=== PATIENT | female | born 2005 | race Hispanic/Latino ===

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

== ENCOUNTER 2024-06-16 04:55 | Emergency (ER) | payer SELFPAY ==
[2024-06-16] MEDS ORDERED: ONDANSETRON 4 MG/2 ML VIAL ONE (05:25)
[2024-06-16] MEDS ORDERED: NA CHLORIDE 0.9% 1,000 ML ONE (05:25)
[2024-06-16] MEDS ORDERED: PROMETHAZINE INJ 25 MG/ML AMP ONE (05:25)
[2024-06-16 05:47] LABS: Absolute Lymphocytes (CBC) 0.5 K/uL (0.7-4.9); Absolute Monocytes 0.4 K/uL (0.1-1.3); Absolute Neutrophil 13.3 K/uL (1.8-8.0); Basophils % 0.2 % (0-1.3); Eosinophils % 0.3 % (0-4.4); Hematocrit 41.9 % (36.0-45.0); Hemoglobin 14.3 g/dL (12.0-15.0); Lymphocytes % 3.2 % (15.3-44.8); MCH 31.8 pg (27.0-35.0); MCHC 34.2 g/dL (32.0-36.0); MCV 92.9 fL (80-100); MPV 9.3 fL (7.6-11.3); Monocytes % 2.9 % (3.3-12.3); Neutrophils % 93.4 % (41.7-73.7); Platelets 188 thou/uL (152-406); RBC Red Blood Cell Count 4.51 M/uL (3.86-4.86); Red Cell Distribution Width 12.3 % (12.1-15.2)
[2024-06-16 05:49] LABS: Specific Gravity > 1.030 (1.005-1.030)
[2024-06-16 05:53] LABS: Specific Gravity > 1.030 (1.005-1.030); Urine Bacteria <20 /HPF (<20); Urine Bilirubin NEGATIVE (Negative); Urine Blood Negative (Negative); Urine Clarity Extremely Turbid (Clear); Urine Color Yellow (Yellow); Urine Crystals Unidentified Few /HPF (None Seen); Urine Culture Reflex Order NOT NEEDED; Urine Glucose NEGATIVE (Negative); Urine Ketones NEGATIVE (Negative); Urine Microscopic Reflex YN ORDER UMIC; Urine Mucus 4+ /HPF (None Seen); Urine Nitrite NEGATIVE (Negative); Urine Protein TRACE (Negative); Urine RBC <5 /HPF (None Seen); Urine Urobilinogen Normal (Normal); Urine WBC <5 /HPF (<5); Urine pH 5.5 (5.0-7.0)
[2024-06-16 06:06] LABS: Albumin 4.2 g/dL (3.4-5.0); Albumin/Globulin Ratio 1.2 (1.1-1.8); Anion Gap 7.7 mEq/L (5.0-15.0); Bilirubin Total 1.5 mg/dL (0.2-1.0); Globulin 3.5 g/dL (2.3-3.5); Potassium 3.7 mEq/L (3.5-5.1); Protein, Total 7.7 g/dL (6.4-8.2)
[2024-06-16 06:44] LABS: Platelet Estimate ADEQ; White Blood Cell Scan OK (OK)
[2024-06-16 06:45] LABS: Blood Morphology Comment NOT SEEN (NOT SEEN)
--- NOTE | 2024-06-16 07:16 | EDPHYS ---
Physician Documentation [facility] Name: Nichole Klein Age: 18 yrs Sex: Female : 2005 Arrival Date: 06/16/2024 Time: 04:55 Bed 8 Private MD: ED Physician Melvin Adamson HPI: 06/16 05:19 This 18 yrs old Female presents to ER via Ambulatory with complaints of trey Nausea/Vomiting, Abdominal Pain. 05:19 The patient presents to the emergency department with nausea, vomiting, abdominal pain, trey of the right upper quadrant, left upper quadrant, right lower quadrant and left lower quadrant. Onset: The symptoms/episode began/occurred 2 day(s) ago. Possible causes: unknown. The symptoms are aggravated by nothing. The symptoms are alleviated by nothing. Associated signs and symptoms: The patient has no apparent associated signs or symptoms. The patient has not experienced similar symptoms in the past. 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 - Infectious Disease History:: Denies. - Social history:: Smoking status: Patient denies any tobacco usage or history of. Patient/guardian denies using alcohol, street drugs. - Family history:: not pertinent. ROS: 05:19 Constitutional: Negative for fever, chills, and weight loss, Eyes: Negative for injury, trey pain, redness, and discharge, ENT: Negative for injury, pain, and discharge, Neck: Negative for injury, pain, and swelling, Respiratory: Negative for shortness of breath, cough, wheezing, and pleuritic chest pain, Back: Negative for injury and pain, : Negative for injury, bleeding, discharge, and swelling, MS/Extremity: Negative for injury and deformity, Skin: Negative for injury, rash, and discoloration, Neuro: Negative for headache, weakness, numbness, tingling, and seizure, Psych: Negative for depression, anxiety, suicide ideation, homicidal ideation, and hallucinations, Allergy/Immunology: Negative for hives, rash, and allergies, Endocrine: Negative for neck swelling, polydipsia, polyuria, polyphagia, and marked weight changes, Hematologic/Lymphatic: Negative for swollen nodes, abnormal bleeding, and unusual bruising, 05:19 Cardiovascular: Positive for palpitations, 05:19 Abdomen/GI: Positive for nausea and vomiting, Exam: 05:19 Constitutional: This is a well developed, well nourished patient who is awake, alert, trey and in no acute distress. Head/Face: Normocephalic, atraumatic. Eyes: Pupils equal round and reactive to light, extra-ocular motions intact. Lids and lashes normal. Conjunctiva and sclera are non-icteric and not injected. Cornea within normal limits. Periorbital areas with no swelling, redness, or edema. ENT: Nares patent. No nasal discharge, no septal abnormalities noted. Tympanic membranes are normal and external auditory canals are clear. Oropharynx with no redness, swelling, or masses, exudates, or evidence of obstruction, uvula midline. Mucous membranes moist. Neck: Trachea midline, no thyromegaly or masses palpated, and no cervical lymphadenopathy. Supple, full range of motion without nuchal rigidity, or vertebral point tenderness. No Meningismus. Chest/axilla: Normal chest wall appearance and motion. Nontender with no deformity. No lesions are appreciated. Respiratory: Lungs have equal breath sounds bilaterally, clear to auscultation and percussion. No rales, rhonchi or wheezes noted. No increased work of breathing, no retractions or nasal flaring. Back: No spinal tenderness. No costovertebral tenderness. Full range of motion. Skin: Warm, dry with normal turgor. Normal color with no rashes, no lesions, and no evidence of cellulitis. MS/ Extremity: Pulses equal, no cyanosis. Neurovascular intact. Full, normal range of motion. Neuro: Awake and alert, GCS 15, oriented to person, place, time, and situation. Cranial nerves II-XII grossly intact. Motor strength 5/5 in all extremities. Sensory grossly intact. Cerebellar exam normal. Normal gait. Psych: Awake, alert, with orientation to person, place and time. Behavior, mood, and affect are within normal limits. 05:19 Constitutional: The patient appears non-toxic, 05:19 Cardiovascular: Rate: tachycardic, actual rate is 130 bpm, Rhythm: regular, 05:19 Abdomen/GI: Inspection: abdomen appears normal, Bowel sounds: normal, Palpation: abdomen is soft and non-tender, Liver: no appreciated palpable abnormalities, Hernia: not appreciated, Vital Signs: 05:10 BP 123 / 79; Pulse 130; Resp 18 S; Temp 97.3(TE); Pulse Ox 98% on R/A; Weight 54.43 kg lg3 (R); Height 5 ft. 2 in. ; Pain 5/10; 05:35 BP 112 / 80; Pulse 108; Resp 18; Temp 97.3; Pulse Ox 99% ; bm8 06:42 BP 102 / 65; Pulse 102; Resp 18; Temp 97.3; Pulse Ox 99% ; Pain 0/10; bm8 07:21 BP 91 / 60; Pulse 95; Resp 18; Pulse Ox 97% on R/A; ap3 05:10 Body Mass Index 21.95 (54.43 kg, 157.48 cm) - Percentile 53.1 % lg3 05:10 Pain Scale: Adult lg3 06:42 Pain Scale: Adult bm8 Slade Coma Score: 05:35 Eye Response: spontaneous(4). Motor Response: obeys commands(6). Verbal Response: bm8 oriented(5). Total: 15. 06:42 Eye Response: spontaneous(4). Motor Response: obeys commands(6). Verbal Response: bm8 oriented(5). Total: 15. MDM: 05:03 Patient medically screened. trey 05:22 Differential diagnosis: Nonspecific abd pain, gastritis, cholecystitis, pancreatitis, trey appendicitis, diverticulitis, viral gastroenteritis, gastroenteritis. Data reviewed: vital signs, nurses notes, lab test result(s), CBC, electrolytes, hepatic panel, urinalysis. Consideration of Admission/Observation Escalation of care including admission/observation considered. I considered the following discharge prescriptions or medication management in the emergency department Medications were administered in the Emergency Department. See MAR. Test considered but Not performed: Ultrasound no abd usg. Historians other than the Patient: pt well informed. Care significantly affected by the following chronic conditions: none. Counseling: I had a detailed discussion with the patient and/or guardian regarding the historical points, exam findings, and any diagnostic results supporting the discharge/admit diagnosis, lab results, radiology results, the need for outpatient follow up, for definitive care, a family practitioner. 06/16 05:09 Order name: CBC with Diff; Complete Time: 07:02 trey 06/16 05:09 Order name: Comprehensive Metabolic Panel; Complete Time: 06:06 trey 06/16 05:09 Order name: Urinalysis w/ reflexes; Complete Time: 06:06 trey 06/16 05:09 Order name: PREGU; Complete Time: 06:06 trey 06/16 05:50 Order name: CBC Smear Scan; Complete Time: 07:02 EDOK 06/16 06:12 Order name: CT Abd/Pelvis - IV Contrast Only trey Administered Medications: 05:34 Drug: Ondansetron IVP 4 mg IVP once; over 2 minutes Route: IVP; Site: left antecubital; bm8 05:57 Follow up: Response: No adverse reaction bm8 05:34 Drug: Promethazine IVP 25 mg IVP once; to liter bag Route: IVP; Site: left antecubital; bm8 05:57 Follow up: Response: No adverse reaction bm8 05:35 Drug: NS 0.9% IV 1000 ml IV at 1 bolus Per protocol; to be given as a bolus over 60 bm8 minutes Route: IV; Rate: 1 bolus; Site: left antecubital; 06:43 Follow up: IV Status: Completed infusion; IV Intake: 1000ml bm8 07:51 Drug: Ciprofloxacin PO 500 mg PO once Route: PO; ap3 Disposition Summary: 06/16/24 07:15 Discharge Ordered Notes: Location: Home trey Problem: new trey Symptoms: have improved trey Condition: Stable trey Diagnosis - Nausea with vomiting, unspecified trey - Nausea trey - Abdominal pain, Generalized trey - Dehydration trey - Elevated white blood cell count trey - Other viral enteritis trey Followup: trey - With: Private Physician - When: 2 - 3 days - Reason: Recheck today's complaints, Continuance of care, Re-evaluation by your physician Discharge Instructions: - Discharge Summary Sheet trey - Abdominal Pain, Adult trey - Dehydration, Adult trey - Nausea and Vomiting, Adult trey - Nausea, Adult trey - Viral Gastroenteritis, Adult, [id number] trey - Nausea and Vomiting, Adult, [id number] trey - Abdominal Pain, Adult, [id number] trey Forms: - Medication Reconciliation Form trey - Antibiotic Education trey - Prescription Opioid Use trey - Patient Portal Instructions trey - Leadership Thank You Letter trey - School release form mb9 - Work release form mb9 Prescriptions: - ondansetron 4 mg Oral Tablet,disintegrating - take 1 tablet ORAL route every 6-8 hours for 5 days as needed for nausea and trey vomiting; 20 tablet; Refills: 0, Product Selection Permitted - Cipro 250 mg Oral tablet - take 1 tablet ORAL route every 12 hours; 10 tablet; Refills: 0, Product trey Selection Permitted - promethazine 25 mg Oral tablet - take 1 tablet ORAL route every 6 hours As needed prn intractable nausea and trey vomiting; 15 tablet; Refills: 0, Product Selection Permitted - dicyclomine 20 mg Oral tablet - take 1 tablet ORAL route 4 times per day; 28 tablet; Refills: 0, Product [facility] Selection Permitted Signatures: Dispatcher [employer] EDMS Melvin Adamson MD MD cha Prokisch, Amanda, RN RN ap3 Jory Shoemaker, RN RN lg3 Rodolfo Hurt RN RN bm8 Corrections: (The following items were deleted from the chart) 05:10 05:09 CBC+H.LAB.BRZ ordered. EDMS EDMS 05:10 05:09 COMPREHENSIVE METABOLIC PANEL+C.LAB.BRZ ordered. EDMS EDMS 05:10 05:09 Urinalysis+U.LAB.BRZ ordered. EDMS EDMS 05:10 05:09 Test, Urine+UC.LAB.BRZ ordered. EDMS EDMS
--- NOTE | 2024-06-16 07:16 | ER ---
Nurse's Notes [facility] Name: Nichole Klein Age: 18 yrs Sex: Female : 2005 Arrival Date: 06/16/2024 Time: 04:55 Bed 8 Private MD: Diagnosis: Nausea with vomiting, unspecified;Nausea;Abdominal pain, Generalized;Dehydration;Elevated white blood cell count;Other viral enteritis Presentation: 06/16 05:10 Chief complaint: Patient states: vomiting with abdominal pain beginning 2300 yesterday. lg3 Coronavirus screen: Client denies travel out of the [place] in the last 14 days. At this time, the client does not indicate any symptoms associated with coronavirus-19. Ebola Screen: No symptoms or risks identified at this time. Initial Sepsis Screen: Does the patient meet any 2 criteria? No. Patient's initial sepsis screen is negative. Does the patient have a suspected source of infection? No. Patient's initial sepsis screen is negative. Risk Assessment: Do you want to hurt yourself or someone else? Patient reports no desire to harm self or others. Onset of symptoms was June 15, 2024. 05:10 Method Of Arrival: Ambulatory lg3 05:10 Acuity: DAVINA 3 lg3 Triage Assessment: 05:11 General: Appears in no apparent distress. comfortable, Behavior is calm, cooperative. lg3 Pain: Complains of pain in abdomen. EENT: No deficits noted. No signs and/or symptoms were reported regarding the EENT system. Neuro: No deficits noted. Tilley Agitation-Sedation Scale (RASS): 0 - Alert and Calm Level of Consciousness is awake, alert, obeys commands, Oriented to person, place, time, situation. Cardiovascular: No deficits noted. Denies chest pain, shortness of breath, Capillary refill < 3 seconds Clubbing of nail beds is absent JVD is absent Patient's skin is warm and dry. Respiratory: No deficits noted. Airway is patent Respiratory effort is even, unlabored, Respiratory pattern is regular, symmetrical. GI: Abdomen is flat, non-distended, Abd is soft X 4 quads Reports lower abdominal pain, upper abdominal pain, nausea, vomiting. : No deficits noted. No signs and/or symptoms were reported regarding the genitourinary system. Derm: No deficits noted. No signs and/or symptoms reported regarding the dermatologic system. Skin is intact, is healthy with good turgor, Skin is dry, Skin is normal, Skin temperature is warm. Musculoskeletal: No deficits noted. No signs and/or symptoms reported regarding the musculoskeletal system. Circulation, motion, and sensation intact. Range of motion: intact in all extremities. 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 - Infectious Disease History:: Denies. - Social history:: Smoking status: Patient denies any tobacco usage or history of. Patient/guardian denies using alcohol, street drugs. - Family history:: not pertinent. Screenin:18 [facility] ED Fall Risk Assessment (Adult) History of falling in the last 3 months, lg3 including since admission No falls in past 3 months (0 pts) Confusion or Disorientation No (0 pts) Intoxicated or Sedated No (0 pts) Impaired Gait No (0 pts) Mobility Assist Device Used No (0 pt) Altered Elimination No (0 pt) Score/Fall Risk Level 0 - 2 = Low Risk Oriented to surroundings, Maintained a safe environment, Educated pt \T\ family on fall prevention, incl call for assistance when getting out of bed, Assessed \T\ reinforced patient's understanding of fall precautions. Abuse screen: Denies threats or abuse. Denies injuries from another. Nutritional screening: No deficits noted. Tuberculosis screening: No symptoms or risk factors identified. Assessment: 05:18 General: see triage assessment. GI: Abdomen is flat, non-distended, Reports lower lg3 abdominal pain, upper abdominal pain, nausea, vomiting. 06:42 Reassessment: Patient appears in no apparent distress at this time. Patient and/or bm8 family updated on plan of care and expected duration. Pain level reassessed. Patient is alert, oriented x 3, equal unlabored respirations, skin warm/dry/pink. Patient denies pain at this time. Patient states feeling better. Patient states symptoms have improved. GI: No deficits noted. No signs and/or symptoms were reported involving the gastrointestinal system. 07:20 Reassessment: Patient and/or family updated on plan of care and expected duration. Pain ap3 level reassessed. Patient is alert, oriented x 3, equal unlabored respirations, skin warm/dry/pink. General: Appears in no apparent distress. comfortable, Behavior is calm, cooperative, appropriate for age. Neuro: Level of Consciousness is awake, alert, obeys commands, Oriented to person, place, time, situation. Cardiovascular: Patient's skin is warm and dry. Respiratory: Airway is patent Respiratory effort is even, unlabored, Respiratory pattern is regular, symmetrical. Vital Signs: 05:10 BP 123 / 79; Pulse 130; Resp 18 S; Temp 97.3(TE); Pulse Ox 98% on R/A; Weight 54.43 kg lg3 (R); Height 5 ft. 2 in. ; Pain 5/10; 05:35 BP 112 / 80; Pulse 108; Resp 18; Temp 97.3; Pulse Ox 99% ; bm8 06:42 BP 102 / 65; Pulse 102; Resp 18; Temp 97.3; Pulse Ox 99% ; Pain 0/10; bm8 07:21 BP 91 / 60; Pulse 95; Resp 18; Pulse Ox 97% on R/A; ap3 05:10 Body Mass Index 21.95 (54.43 kg, 157.48 cm) - Percentile 53.1 % lg3 05:10 Pain Scale: Adult lg3 06:42 Pain Scale: Adult bm8 Slade Coma Score: 05:35 Eye Response: spontaneous(4). Motor Response: obeys commands(6). Verbal Response: bm8 oriented(5). Total: 15. 06:42 Eye Response: spontaneous(4). Motor Response: obeys commands(6). Verbal Response: bm8 oriented(5). Total: 15. ED Course: 05:02 Patient arrived in ED. [email or web address] 05:03 Melvin Adamson MD is Attending Physician. trey 05:11 Triage completed. lg3 05:11 Arm band placed on right wrist. lg3 05:18 Patient has correct armband on for positive identification. Placed in gown. Bed in low lg3 position. Call light in reach. Side rails up X 1. Client placed on continuous cardiac and pulse oximetry monitoring. NIBP monitoring applied. Door closed. Noise minimized. Warm blanket given. Pillow given. 05:34 Rodolfo Hurt, RN is Primary Nurse. bm8 05:35 No provider procedures requiring assistance completed. Initial lab(s) drawn, by ED bm8 staff, sent to lab. Inserted saline lock: 20 gauge in left antecubital area, using aseptic technique. Blood collected. Flushed with 10 mL NS. Patient maintains SpO2 saturation greater than 95% on room air. 06:28 CT Abd/Pelvis - IV Contrast Only In Process Unspecified. EDMS 07:05 Report given to Sejal Valencia RN and CHEKO Carmen. bm8 07:50 Provided Education on: discharge instructions. ap3 07:50 IV discontinued, intact, bleeding controlled, No redness/swelling at site. Pressure ap3 dressing applied. Administered Medications: 05:34 Drug: Ondansetron IVP 4 mg IVP once; over 2 minutes Route: IVP; Site: left antecubital; bm8 05:57 Follow up: Response: No adverse reaction bm8 05:34 Drug: Promethazine IVP 25 mg IVP once; to liter bag Route: IVP; Site: left antecubital; bm8 05:57 Follow up: Response: No adverse reaction bm8 05:35 Drug: NS 0.9% IV 1000 ml IV at 1 bolus Per protocol; to be given as a bolus over 60 bm8 minutes Route: IV; Rate: 1 bolus; Site: left antecubital; 06:43 Follow up: IV Status: Completed infusion; IV Intake: 1000ml bm8 07:51 Drug: Ciprofloxacin PO 500 mg PO once Route: PO; ap3 Medication: 05:18 VIS not applicable for this client. lg3 Intake: 06:43 IV: 1000ml; Total: 1000ml. bm8 Outcome: 07:15 Discharge ordered by . trey 07:44 Condition: good ap3 07:44 Discharge instructions given to patient, Instructed on discharge instructions, follow up and referral plans. medication usage, Demonstrated understanding of instructions, follow-up care, medications, Prescriptions given X 4, 07:50 Discharged to home ambulatory, ap3 08:12 Patient left the ED. ap3 Signatures: Dispatcher [employer] [facility] Melvin Adamson MD MD cha Prokisch, Amanda, RN RN ap3 Jory Shoemaker RN RN lg3 Adeline Rosen Rodolfo Hurt, RN RN bm8
[2024-06-16] MEDS ORDERED: CIPROFLOXACIN HCL 500 MG TAB ONE (07:33)
--- NOTE | 2024-06-16 07:36 | RAD REPORT ---
EXAMINATION: CT ABDOMEN AND PELVIS WITH CONTRAST CLINICAL INDICATION: Abdominal pain TECHNIQUE: CT abdomen and pelvis was performed, after the administration of 100 cc Isovue-300.. Sagit luke and coronal reconstructions were obtained. One or more of the following dose reduction techniques were used: Automated exposure control, adjustment of the mA and/or kV according to patien t size, and/or iterative reconstruction. Unless otherwise specified, incidental findings do not require dedicated imaging follow-up. [id number]. Oral contrast was not given which limits evaluation of b owel and appendix. COMPARISON: 2018 FINDINGS: The liver, spleen, pancreas, adrenals and kidneys appear unremarkable There is no evidence of diverticulitis 2 cm right ovarian cyst without significant free fluid. No follow-up imaging recommended. Abnormal appendix not seen Fluid within nondilated small bowel : IMPRESSION: Fluid within nondilated small bowel may indicate an enteritis 2 cm right ovarian cyst without significant free fluid
[2024-06-16 08:39] VITALS: TEMP 97.3
[2024-06-16 08:44] VITALS: BP 91/60; O2SAT 97
== END 2024-06-16 08:12 | disposition home or self-care (01) ==
LOC: ER 04:55
DX: E86.0 Dehydration (principal); R10.84 Generalized abdominal pain; A08.39 Other viral enteritis; D72.829 Elevated white blood cell count, unspecified; R11.0 Nausea
CPT/HCPCS: 36415; 74177; 80053; 81001; 81025; 85025; J2405; J2550; J7030; Q9967

== ENCOUNTER 2024-08-07 14:38 | Emergency (ER) | payer SELFPAY, OTHER ==
--- OUTSIDE RECORDS SUMMARY | 2024-08-07 14:41 | XMS REPORT | Continuity of Care Document ---
Author Name Unknown Address [address] [facility] [address] [place] [address] [facility] thconnect Address [address] [facility] [address] [place] [address] Care Team Providers Care Chalk Machine Operator Name Role Phone Sabrina Dennis Primary Care Physician + [phone] ASPEN LOVE Attending Clinician Unavailable Testing, [facility] Pulmonary Function Attending Clinic ashlee Unavailable Reshma Serrano MD Attending Clin ician RESHMA SERRANO Attending Clinici an Unavailable Khalida Damian Attending Clinician [phone] TAD LOPEZ Attending Clinician Unavailab chris Ang-Ped_Temp Attending Clinician Unavailable Tad Henriquez Attending Clinician + [phone] Sabrina Rodriguez Attending Clinician + [phone] Doctor Unassigned, [place] Attending Clinician Janna Guzmán Attending Clinician [phone] NEIL BALL Attending Clinician Unavailab [place] Attending Clinician Unavail able ALESSIO BOURGEOIS Attending Clinician Unavail able Nurse, Adc Pob Immunization Attending Clinician Unavailable Alessio Bourgeois DO Attending Clinician [phone] Neil Ball MD Attending Clinician [phone] SABRINA MENDENHALL Attending Clinician Unavailabl e [facility], [facility]ending [facility]ician Shiloh JURADO, Sabrina Hardy Attending Clinician [phone] Darwin Ellsworth PA-C Attending Clinician [phone] Provider, [facility] Attending Clinician Un available Telly Ag PTA Attending Clinician UnavailAnjum Haskins MD Attending Clinician [phone] Ancelmo KIRKPATRICK, Marichuy Love Attending Clinician Unavail able JOSEPH ELLIOTT Attending Clinician Unavailable Theresa Zuniga PT Attending Clinician Unavailab ANJUM Dela Cruz Attending Clinician Unavailabl e Lab, Kathe Attending Clinician Unavailable Aryan Adhikari Attending Clinician [phone] ARYAN HESS Attending Clinician Unavaila BRIANNE Harrington Attending Clinician Unavailable Ebrahim PHARMACEUTICAL BOTANIST, Ruddy Attending Clinician [phone] Lab, Adc Fam Pob I Attending Clinician Unavailab chris JURADO, Brianne Attending Clinician [phone] Payers Payer Name Policy Type Policy Number Effective Date Expirati on Date Source [employer] MP [facility] [employer] 5 O [employer] 94 ON 9 [id number] 2024 00:00:00 Problems Condition Name Condition Details Condition Category Status Onset Date Resolution Date Last Treatment Date Treating Clinician Comments Source Kyphosis Kyphosis Disease Active 09-10 00:00: 00 [facility] Acne, unspecifie d acne type Acne, unspecifie d acne type Disease Active 04-02 00:00: 00 [facility] Mild persistent asthma without complicati on Mild persistent asthma without complicati on Disease Active 04-02 00:00: 00 [facility] Allergies, Adverse Reactions, Alerts Allergy Name Allergy Type Status Severity Reaction(s) Onset Date Inactive Date Treating Clinician Comments Source NO KNOWN ALLERGIE S Drug Class Active [facility] Social History Social Habit Start Date Stop Date Quantity Comments Source ASSERTION Not Azucena Finch - External Sexual orientation Ivan Finch - External History of Social function 2024-08-06 00:00:00 2024-08-06 00:00:00 Azucena Finch - External Sex 2024-04-17 21:46:45 2024-04-17 21:46:45 Female (finding) Azucena Mcclendongalileawillem - External Exposure to SARS-CoV-2 (event) 2022-07-05 00:00:00 2022-07-15 09:07:00 Not sure [facility] Tobacco use and exposure 2020-04-02 00:00:00 2020-04-02 00:00:00 Smokeless tobacco non-user [facility] Sex assigned at 2004 00:00:00 2005 00:00:00 Azucena Mcclendongalileawillem - External Smoking Status Start Date Stop Date Source Never smoked tobacco Azucena Segalileawillem - External Medications Ordered Medication Name Filled Medication Name Start Date Stop Date Current Medication? Ordering Clinician Indication Dosage Frequency Signature (SIG) Comments Components Source Famotidine (PEPCID) 20 MG oral tablet 2023-09 00:00: 00 Yes [id number] 20mg Q.5D Take 1 tablet (20 mg total) by mouth 2 times daily as needed for heartburn. Azucena Finch - Externa l albuterol (PROAIR HFA) 90 mcg/actuati on inhaler 09-10 00:00: 00 Yes [id number] 2{puff} Inhale 2 Puffs every 6 (six) hours as needed for Wheezing or Shortness of Breath. [facility] Vital Signs Vital Name Observation Time Observation Value Comments S ource Diastolic blood pressure 2024-08-06 20:09:00 70 mm[Hg] Azucena Ferris ld - External Heart rate 2024-08-06 20:09:00 69 /min Madan Finch - External Body temperature 2024-08-06 20:09:00 35.39 Angeli Azucena Finch - External Respiratory rate 2024-08-06 20:09:00 16 /min Azucena Finch - External Body height 2024-08-06 20:09:00 154.9 cm Zuleyka Finch - External Body weight 2024-08-06 20:09:00 55.792 kg Zuleyka ey Seybold - External BMI 2024-08-06 20:09:00 23.24 kg/m2 Zuleyka richardson Seybold - External Oxygen saturation in Arterial blood by Pulse oximetry 2024-08-06 20:09:00 98 /min Azucena Ferris ld - External Systolic blood pressure 2024-08-06 20:09:00 117 mm[Hg] Azucena Ferris ld - External Systolic blood pressure 2022-06-27 13:23:00 115 mm[Hg] [facility] Diastolic blood pressure 2022-06-27 13:23:00 76 mm[Hg] [facility] Heart rate 2022-06-27 13:23:00 95 /min [facility] Body temperature 2022-06-27 13:23:00 36.61 Angeli [facility] Respiratory rate 2022-06-27 13:23:00 20 /min [facility] Body height 2022-06-27 13:23:00 155 cm [facility] Body weight 2022-06-27 13:23:00 49.4 kg [facility] BMI 2022-06-27 13:23:00 20.56 kg/m2 [facility] Body mass index (BMI) [Percentile] Per age and sex 2022-06-27 13:23:00 41.44 % [facility] Oxygen saturation in Arterial blood by Pulse oximetry 2022-06-27 13:23:00 98 /min [facility] Systolic blood pressure 2022-05-02 16:10:00 113 mm[Hg] [facility] Diastolic blood pressure 2022-05-02 16:10:00 80 mm[Hg] [facility] Heart rate 2022-05-02 16:10:00 87 /min [facility] Body temperature 2022-05-02 16:10:00 36.72 Angeli [facility] Respiratory rate 2022-05-02 16:10:00 20 /min [facility] Body height 2022-05-02 16:10:00 156.2 cm [facility] Body weight 2022-05-02 16:10:00 50.259 kg [facility] BMI 2022-05-02 16:10:00 20.60 kg/m2 [facility] Body mass index (BMI) [Percentile] Per age and sex 2022-05-02 16:10:00 42.72 % [facility] Procedures Procedure Date / Time Performed Performing Clinicia n Source PULMONARY FUNCTION TEST (RESULTS) 2022-07-15 14:15:40 WillemReshma [facility] CONSENT FOR MEDICAL TREATMENT OF A MINOR 2022-05-02 05:01:00 Doctor Unassigned, [place] [facility] Encounters Start Date/Time End Date/Time Encounter Type Admission Type Attending [facility] Care Facility Care Department Encounter ID Source 2024-08-14 14:00:00 2024-08-14 14:00:00 Outpatient ASPEN LOVE [id number] Azucena Finch 2024-08-06 14:00:00 2024-08-06 14:00:00 Outpatient ASPEN LOVE [id number] [facility] 2022-07-15 08:00:00 2022-07-15 09:00:00 Lube Attendant Visit Testing, [facility] Pulmonary Function [place] bad[place] [facility] ..840.114 350.1.13.10 4.2.7.2.686 [id number] [facility] 2022-07-15 08:00:00 2022-07-15 08:00:00 Outpatient R RESHMA SERRANO [facility] [id number] [facility] 2022-07-15 00:00:00 2022-07-15 00:00:00 Orders Only [place] bad[place] Gro[facility] 1..840.114 350.1.13.10 4.2.7.2.686 [id number] [facility] 2022-06-27 08:00:00 2022-06-27 08:30:00 Office Visit WillemReshma Grover [facility] 1..840.114 350.1.13.10 4.2.7.2.686 [id number] [facility] 2022-06-27 08:00:00 2022-06-27 08:00:00 Outpatient R RESHMA SERRANO [facility] [id number] [facility] 2022-06-27 00:00:00 2022-06-27 00:00:00 [facility] (Out[facility] [place] 1.2.840.114 350.1.13.10 4.2.7.2.686 [id number] [facility] 2022-06-27 00:00:00 2022-06-27 00:00:00 Telephone Khalida Gandhi [facility] FIRE MANAGEMENT TECHNICIAN [facility] 1..840.114 350.1.13.10 4.2.7.2.686 [id number] [facility] 2022-05-02 11:00:00 2022-05-02 12:14:38 Outpatient TAD MAC [facility] [id number] [facility] 2022-05-02 11:00:00 2022-05-02 12:14:38 Office Visit Ang-Ped_Tem Tad Horne [facility] FIRE MANAGEMENT TECHNICIAN [facility] 1..840.114 350.1.13.10 4.2.7.2.686 [id number] [facility] 2022-05-02 11:00:00 2022-05-02 11:00:00 Outpatient TAD MAC [facility] [id number] [facility] 2022-05-02 11:00:00 2022-05-02 11:00:00 Outpatient TAD MAC [facility] [id number] [facility] 2022-05-02 00:00:00 2022-05-02 00:00:00 Letter (Out) Sabrina Braxton [facility] FIRE MANAGEMENT TECHNICIAN [facility] 1.2.840.114 350.1.13.10 4.2.7.2.686 [id number] [facility] 2022-05-02 00:00:00 2022-05-02 00:00:00 Orders Only Doctor Unassigned, [place] [facility] 1.2.840.114 350.1.13.10 4.2.7.2.686 [id number] [facility] 2022-04-29 00:00:00 2022-04-29 00:00:00 Telephone Khalida Gandhi [facility] FIRE MANAGEMENT TECHNICIAN [facility] 1.2.840.114 350.1.13.10 4.2.7.2.686 [id number] [facility] 2022-04-29 00:00:00 2022-04-29 00:00:00 Telephone Oksana Khalida [facility] FIRE MANAGEMENT TECHNICIAN [facility] 1.2.840.114 350.1.13.10 4.2.7.2.686 [id number] [facility] 2022-01-26 00:00:00 2022-01-26 00:00:00 Telephone Janna Pike [facility] FIRE MANAGEMENT TECHNICIAN [facility] 1.2.840.114 350.1.13.10 4.2.7.2.686 [id number] [facility] 2021-11-26 13:15:00 2021-11-26 13:15:00 Outpatient NEIL WILLSON [facility] [id number] [facility] 2021-11-26 13:15:00 2021-11-26 13:15:00 Outpatient NEIL WILLSON [facility] [id number] [facility] 2021-10-01 09:30:00 2021-10-01 09:30:00 Outpatient R NAGA DOE [facility] [id number] [facility] 2021-10-01 09:30:00 2021-10-01 09:30:00 Outpatient R ELTONPHYLLIS MENDESOLA [facility] [id number] [facility] 2021-09-17 15:40:00 2021-09-17 15:40:00 [id number] 2021-09-17 15:40:00 2021-09-17 15:40:00 [facility] [id number] [facility] 2021-09-17 15:40:00 2021-09-17 15:40:00 Imm/Inj Visit Nurse, Nathan Gacria ImmunizatiAlessio Falcon [facility] ..114 350.1.13.10 4.2.7.2.686 [id number] [facility] 2021-09-10 09:00:00 2021-09-10 10:05:56 Outpatient R JANNA PIKE [facility] [id number] [facility] 2021-09-10 09:00:00 2021-09-10 10:05:56 Office Visit Janna Pike [facility] FIRE MANAGEMENT TECHNICIAN [facility] ..114 350.1.13.10 4.2.7.2.686 [id number] [facility] 2021-09-10 00:00:00 2021-09-10 00:00:00 Orders Only Doctor Unassigned, [place] [facility] .114 350.1.13.10 4.2.7.2.686 [id number] [facility] 2021-06-25 15:18:17 2021-06-25 23:59:00 Hospital Encounter Neil Ball [facility] PRIMARY CARE PAVILLION .2.840.114 350.1.13.10 4.2.7.2.686 [id number] [facility] 2021-06-25 14:37:59 2021-06-25 16:44:21 Office Visit Neil Ball [facility] PRIMARY CARE PAVKAMALJIT 1.2.840.114 350.1.13.10 4.2.7.2.686 [id number] [facility] 2021-06-25 14:30:00 2021-06-25 16:44:[address] [facility] [id number] [facility] 2021-06-02 00:00:00 2021-06-02 00:00:00 Letter (Out) Lizzy [facility] PRIMARY CARE IRINA 1.2.840.114 350.1.13.10 4.2.7.2.686 [id number] [facility] 2021-04-07 15:00:00 2021-04-07 15:00:00 Outpatient R SABRINA MENDENHALL [facility] [id number] [facility] 2021-03-30 15:32:30 2021-03-30 15:44:43 Nurse Visit Visit, [facility] Nurse Sabrina Mendenhall [facility] FIRE MANAGEMENT TECHNICIAN [facility] 1.2.840.114 350.1.13.10 4.2.7.2.686 [id number] [facility] 2021-03-30 15:08:39 2021-03-30 15:23:39 Office Visit Sabrina Mendenhall [facility] FIRE MANAGEMENT TECHNICIAN [facility] 1.2840.114 350.1.13.10 4.2.7.2.686 [id number] [facility] 2021-03-30 15:00:00 2021-03-30 15:00:00 Outpatient R SABRINA MENDENHALL [facility] [id number] [facility] 2021-03-30 00:00:00 2021-03-30 00:00:00 Orders Only Doctor Unassigned, [place] [facility] 1.2840.114 350.1.13.10 4.2.7.2.686 [id number] [facility] 2021-03-26 14:00:00 2021-03-26 14:00:00 Outpatient SABRINA VILLANUEVA [facility] [id number] [facility] 2021-02-04 16:40:00 2021-02-04 16:40:00 Outpatient ALESSIO ORTIZ [facility] [id number] [facility] 2021-02-04 00:00:00 2021-02-04 00:00:00 Orders Only Doctor Unassigned, [place] [facility] 1.840.114 350.1.13.10 4.2.7.2.686 [id number] [facility] 2021-01-21 00:00:00 2021-01-21 00:00:00 Telephone SengCritical access hospital Office [facility] .840.114 350.1.13.10 4.2.7.2.686 [id number] [facility] 2021-01-20 19:20:37 2021-01-20 19:47:37 Urgent Care Provider, [facility] SengCritical access hospital Office [facility] .840.114 350.1.13.10 4.2.7.2.686 [id number] [facility] 2021-01-20 19:40:00 2021-01-20 19:40:00 Outpatient R [facility] [id number] [facility] 2021-01-20 00:00:00 2021-01-20 00:00:00 Telephone Sabrina Mendenhall [facility] FIRE MANAGEMENT TECHNICIAN [facility] 1.2.840.114 350.1.13.10 4.2.7.2.686 [id number] [facility] 2021-01-18 15:49:09 2021-01-18 16:29:54 Ancillary Visit Telly Ag Craig L [facility] 1.2840.114 350.1.13.10 4.2.7.2.686 [id number] [facility] 2021-01-15 15:40:48 2021-01-15 16:20:48 Ancillary Visit Marichuy Ag Craig L [facility] 1.2840.114 350.1.13.10 4.2.7.2.686 [id number] [facility] 2021-01-15 16:20:00 2021-01-15 16:20:00 Outpatient ALESSIO ORTIZ [facility] [id number] [facility] 2021-01-13 16:20:00 2021-01-13 16:20:00 Outpatient JOSEPH BRAY [facility] [id number] [facility] 2021-01-11 15:34:04 2021-01-11 16:02:10 Ancillary Visit Theresa Zuniga Craig L [facility] 1.2840.114 350.1.13.10 4.2.7.2.686 [id number] [facility] 2021-01-04 16:06:20 2021-01-04 16:41:37 Ancillary Visit Theresa Zuniga Craig L [facility] 1.2.840.114 350.1.13.10 4.2.7.2.686 [id number] [facility] 2021-01-04 16:00:00 2021-01-04 16:00:00 Outpatient R ANJUM TINOCO [facility] [id number] [facility] 2020-12-31 15:22:04 2020-12-31 16:21:28 Ancillary Visit Theresa Zuniga Craig L [facility] 1.2.840.114 350.1.13.10 4.2.7.2.686 [id number] [facility] 2020-12-31 00:00:00 2020-12-31 00:00:00 Letter (Out) Sabrina Mendenhall [facility] FIRE MANAGEMENT TECHNICIAN [facility] 1.20.114 350.1.13.10 4.2.7.2.686 [id number] [facility] 2020-12-28 16:30:52 2020-12-29 11:16:06 Ancillary Visit Theresa Zuniga Craig [facility] 1.284.114 350.1.13.10 4.2.7.2.686 [id number] [facility] 2020-12-28 15:15:25 2020-12-28 15:59:16 Lube Attendant Visit Lab, [facility] Sabrina Mendenhall [facility] FIRE MANAGEMENT TECHNICIAN [facility] 1.20.114 350.1.13.10 4.2.7.2.686 [id number] [facility] 2020-12-28 15:15:00 2020-12-28 15:15:00 Outpatient R [facility] [id number] [facility] 2020-12-25 13:18:46 2020-12-25 14:27:04 Office Visit Sabrina Mendenhall [facility] FIRE MANAGEMENT TECHNICIAN [facility] 1.20.114 350.1.13.10 4.2.7.2.686 [id number] [facility] 2020-12-25 14:20:00 2020-12-25 14:20:00 Outpatient JOSEPH BRAY [facility] [id number] [facility] 2020-12-25 13:00:00 2020-12-25 13:00:00 Outpatient SABRINA VILLANUEVA [facility] [id number] [facility] 2020-12-25 13:00:00 2020-12-25 13:00:00 Outpatient SABRINA VILLANUEVA [facility] [id number] [facility] 2020-12-21 15:06:54 2020-12-21 15:46:54 Ancillary Visit Telly Ag Craig L [facility] 1..840.114 350.1.13.10 4.2.7.2.686 [id number] [facility] 2020-12-18 15:27:00 2020-12-18 15:59:49 Ancillary Visit Marichuy Ag Craig L [facility] 1.2.840.114 350.1.13.10 4.2.7.2.686 [id number] [facility] 2020-12-14 15:31:52 2020-12-14 16:13:36 Ancillary Visit Theresa Zuniga Craig L [facility] 1.2.840.114 350.1.13.10 4.2.7.2.686 [id number] [facility] 2020-12-11 00:00:00 2020-12-11 00:00:00 Orders Only Doctor Unassigned, [place] [facility] 1.2.840.114 350.1.13.10 4.2.7.2.686 [id number] [facility] 2020-12-03 08:26:59 2020-12-03 09:34:36 Ancillary Visit Theresa Zuniga Craig L [facility] ..840.114 350.1.13.10 4.2.7.2.686 [id number] [facility] 2020-12-03 08:20:00 2020-12-03 08:20:00 Outpatient R ANJUM TINOCO [facility] [id number] [facility] 2020-11-19 14:34:26 2020-11-19 23:59:00 Hospital Encounter Aryan Hess [facility] SPECIALTY [facility] [place] [facility] ..840.114 350.1.13.10 4.2.7.2.686 [id number] [facility] 2020-11-19 14:31:23 2020-11-19 15:11:50 Office Visit Aryan Hess [facility] ..840.114 350.1.13.10 4.2.7.2.686 [id number] [facility] 2020-11-19 15:00:00 2020-11-19 15:00:00 Outpatient R ARYAN HESS [facility] [id number] [facility] 2020-11-19 00:00:00 2020-11-19 00:00:00 Letter (Out) Aryan Hess [facility] SPECIALTY [facility] ..840.114 350.1.13.10 4.2.7.2.686 [id number] [facility] 2020-11-18 00:00:00 2020-11-18 00:00:00 Abstract Aryan Hess [facility] SPECIALTY [facility] ..840.114 350.1.13.10 4.2.7.2.686 [id number] [facility] 2020-06-26 13:31:24 2020-06-26 13:42:43 Nurse Visit Visit, [facility] Nurse Sabrina Mendenhall [facility] FIRE MANAGEMENT TECHNICIAN [facility] 1.2.840.114 350.1.13.10 4.2.7.2.686 [id number] [facility] 2020-06-26 13:05:13 2020-06-26 13:40:51 Office Visit Sabrina Mendenhall [facility] FIRE MANAGEMENT TECHNICIAN [facility] 1.2.840.114 350.1.13.10 4.2.7.2.686 [id number] [facility] 2020-06-26 13:00:00 2020-06-26 13:00:00 Outpatient R SABRINA MENDENHALL [facility] [id number] [facility] 2020-04-23 15:08:52 2020-04-23 23:59:00 Hospital Encounter Aryan Hess [facility] SPECIALTY [facility] 1.2.840.114 350.1.13.10 4.2.7.2.686 [id number] [facility] 2020-04-23 14:54:03 2020-04-23 16:17:24 Office Visit Aryan Hess [facility] SPECIAL[facility] 1.2.840.114 350.1.13.10 4.2.7.2.686 [id number] [facility] 2020-04-23 15:00:00 2020-04-23 15:00:00 Outpatient R ARYAN HESS [facility] [id number] [facility] 2020-04-21 00:00:00 2020-04-21 00:00:00 Abstract Aryan Hess [facility]TY [facility] [place] [facility] 1.2.840.114 350.1.13.10 4.2.7.2.686 [id number] [facility] 2020-04-16 10:49:34 2020-04-16 23:59:00 Hospital Encounter Sabrina Mendenhall [facility] 1.2.840.114 350.1.13.10 4.2.7.2.686 [id number] [facility] 2020-04-16 00:00:00 2020-04-16 00:00:00 Outpatient R SABRINA MENDENHALL [facility] [id number] [facility] 2020-04-16 00:00:00 2020-04-16 00:00:00 Telephone Saúl Sabrina N [facility] [employer]NAGEMENT TECHNICIAN [facility]ILD [facility] [id number] [facility] 2020-04-03 00:00:00 2020-04-03 00:00:00 Telephone Sabrina Mendenhall [facility] FIRE MANAGEMENT TECHNICIAN [facility] & CHILD [facility] [id number] [facility] 2020-04-02 11:57:49 2020-04-02 12:17:38 Billing Encounter Saúl Sabrina Antony [facility] FIRE MANAGEMENT TECHNICIAN [facility]ILD [facility] [id number] [facility] 2020-04-02 10:47:35 2020-04-02 12:17:30 Office Visit Saúl Sabrina N [facility] FIRE MANAGEMENT TECHNICIAN [facility] [id number] [facility] 2020-04-02 10:45:00 2020-04-02 10:45:00 Outpatient R SABRINA MENDENHALL [facility] [id number] [facility] 2020-04-02 00:00:00 2020-04-02 00:00:00 Orders Only Doctor Unassigned, [place] [facility] [id number] [facility] 2020-03-15 16:20:00 2020-03-15 16:20:00 Outpatient O BRIANNE ALLAN [facility] [id number] [facility] 2020-03-15 00:00:00 2020-03-15 00:00:00 Telephone Serge Tesfayeverena [facility] [id number] [facility] 2020-03-14 14:38:43 2020-03-14 14:58:43 Laboratory Only Lab, Adc Fam Pob I [facility] [id number] [facility] 2020-03-14 14:40:00 2020-03-14 14:40:00 Outpatient O BRIANNE ALLAN [facility] [id number] [facility] Results Test Description Test Time Test Comments Results Result Co mments Source [facility] Notes Date/Time Note Provider Source 2024-08-06 14:11:40 Chief Complaint Patient presents with ER F/U Nausea/ vomiting Knee Pain Bilateral ongoing [facility]
[2024-08-07] MEDS ORDERED: IBUPROFEN 200 MG TAB PO ONE (14:54)
[2024-08-07 15:31] LABS: Specific Gravity > 1.030 (1.005-1.030)
[2024-08-07 15:32] LABS: Specific Gravity > 1.030 (1.005-1.030); Sqamous Epithelial <5 /HPF (None Seen); Urine Bacteria None Seen /HPF (<20); Urine Bilirubin NEGATIVE (Negative); Urine Blood Negative (Negative); Urine Clarity Extremely Turbid (Clear); Urine Color Yellow (Yellow); Urine Crystals Unidentified Few /HPF (None Seen); Urine Culture Reflex Order NOT NEEDED; Urine Glucose NEGATIVE (Negative); Urine Ketones NEGATIVE (Negative); Urine Microscopic Reflex YN ORDER UMIC; Urine Mucus Slight /HPF (None Seen); Urine Nitrite NEGATIVE (Negative); Urine Protein TRACE (Negative); Urine RBC <5 /HPF (None Seen); Urine Urobilinogen Normal (Normal); Urine WBC <5 /HPF (<5); Urine WBC Clump Rare /HPF (None Seen); Urine Yeast (Budding) Occasional /HPF (None Seen); Urine pH 7.5 (5.0-7.0)
--- NOTE | 2024-08-07 16:29 | RAD REPORT ---
EXAMINATION: Lumbar Spine 3 Views CLINICAL INDICATION: Back pain FINDINGS: No fracture or dislocation seen.
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
[2024-08-07 22:44] VITALS: BP 129/66; TEMP 98.4; O2SAT 100
== END 2024-08-07 16:59 | disposition home or self-care (01) ==
LOC: ER 14:38
DX: M54.50 Low back pain, unspecified (principal); V49.59XA Passenger injured in collision with other motor vehicles in traffic accident, initial encounter
CPT/HCPCS: 72100; 81001; 81025; 99283